=== PATIENT | female | born 1990 | race American Indian/Alaskan Native ===

== ENCOUNTER 2021-01-16 09:58 | Emergency (ER) | payer MEDICAID, OTHER ==
[2021-01-16 10:20] VITALS: BP 136/70
[2021-01-16] MEDS ORDERED: ACETAMINOPHEN 325 MG TAB PO ONE (10:55)
[2021-01-16 11:46] LABS: Alanine Aminotransferase 10 units/L (7-56); Albumin 3.9 g/dL (3.9-5); Blood Urea Nitrogen 6 mg/dL (7-17); Hemolysis Index 2
[2021-01-16 11:52] LABS: Basophils % (Auto) 0.1 % (0.0-1.8); Eosinophils # (Auto) 0.1 K/mm3 (0.0-0.4); Eosinophils % (Auto) 0.9 % (0.0-4.3); Hematocrit 36.5 % (30.3-42.9); Hemoglobin 12.2 gm/dl (10.1-14.3); Lymphocytes # (Auto) 2.5 K/mm3 (1.2-5.4); Lymphocytes % (Auto) 26.5 % (13.4-35.0); Mean Corpuscular HGB Conc 33 % (30-34); Mean Corpuscular Volume 87 fl (79-97); Monocytes # (Auto) 0.9 K/mm3 (0.0-0.8); Monocytes % (Auto) 9.2 % (0.0-7.3); Platelet Count 280 K/mm3 (140-440); Red Blood Count 4.18 M/mm3 (3.65-5.03); Red Cell Distribution Width 13.2 % (13.2-15.2)
[2021-01-16 11:53] LABS: BUN/Creatinine Ratio 12
[2021-01-16 12:21] LABS: Bilirubin,Urine NEG (Negative); Blood,Urine NEG (Negative); Color,Urine Yellow (Yellow); Mucus,Urine FEW /HPF; Protein,Urine <15 mg/dL mg/dL (Negative); Urobilinogen,Urine < 2.0 mg/dL (<2.0)
--- NOTE | 2021-01-16 12:57 | Emergency Department Report ---
ED HPI - General Chief complaint: Vaginal Bleeding Stated complaint: 10 WEEKS , VAGINAL BLEEDING Time Seen by Provider: 01/16/21 10:46 Source: patient Mode of arrival: Ambulatory Limitations: No Limitations - History of Present Illness Initial comments: Patient is a 30-year-old female presents emergency room complaints of lower abdominal cramping that began around 5 AM this morning. She states that she initially had light spotting. She states that she had one episode where she filled up her menstrual pad. She states now that the bleeding has completely resolved and when she went to the bathroom she had no bleeding. She states that she continues to have intermittent cramping. Patient states that she is currently approximately 10 weeks . She states that her GATE WATCHMAN is Dr. Newell and she called their office today and was advised to be seen in the emergency room. 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 She has not had any live births. She states that they were planning to do a cerclage at 13 weeks. She states that she has essentially been on bedrest since 6 weeks and she does not stay on her feet for more than 2 hours. She denies any fever, nausea, vomiting, diarrhea, abnormal vaginal discharge, urinary symptoms, back pain. No other past medical history. No allergies to medications. - Related Data Previous Rx's Medication Instructions Recorded Last Taken Type Ibuprofen [Motrin] 800 mg PO TID PRN #12 tablet 09/07/13 Unknown Rx Allergies Allergy/AdvReac Type Severity Reaction Status Date / Time peanut AdvReac Swelling Verified 09/07/13 12:16 strawberry [Hooper] AdvReac Swelling Verified 09/07/13 12:16 ED Review of Systems ROS: Stated complaint: 10 WEEKS , VAGINAL BLEEDING Other details as noted in HPI Comment: All other systems reviewed and negative ED Past Medical Hx - Past Medical History Previous Medical History?: No - Surgical History Past Surgical History?: No - Social History Smoking Status: Never Smoker Substance Use Type: None - Medications Home Medications: Home Medications Medication Instructions Recorded Confirmed Last Taken Type Ibuprofen [Motrin] 800 mg PO TID PRN #12 tablet 09/07/13 Unknown Rx ED Physical Exam - General Limitations: No Limitations General appearance: alert, in no apparent distress - Head Head exam: Present: atraumatic, normocephalic - Eye Eye exam: Present: normal appearance - ENT ENT exam: Present: mucous membranes moist - Respiratory Respiratory exam: Present: normal lung sounds bilaterally. Absent: respiratory distress, wheezes, rales, rhonchi, stridor, chest wall tenderness, accessory muscle use, decreased breath sounds, prolonged expiratory - Cardiovascular Cardiovascular Exam: Present: regular rate, normal rhythm, normal heart sounds. Absent: systolic murmur, diastolic murmur, rubs, gallop - GI/Abdominal GI/Abdominal exam: Present: soft, tenderness (suprapubic ), normal bowel sounds. Absent: distended, guarding, rebound, rigid - Neurological Exam Neurological exam: Present: alert, oriented X3 - Psychiatric Psychiatric exam: Present: normal affect, normal mood - Skin Skin exam: Present: warm, dry, intact ED Course Vital Signs 01/16/21 01/16/21 10:18 10:34 Temperature 98.7 F Pulse Rate 97 H Respiratory 18 18 Rate Blood Pressure 136/70 [Right] O2 Sat by Pulse 99 Oximetry - Consultations Consultation #1: 01/16/21 13:[address] Huggins, GATE WATCHMAN regarding patient history, presentation, results, she advised to have ultrasound to measure the cervix length Spoke with ultrasound and they state that the cervix length was 3.1 cm and the os was closed, an addendum was placed on patient's ultrasound report by radiologist Dr. Huggins, GATE WATCHMAN put in a note on patient and advised discharge with outpatient follow-up this week and complete pelvic rest ED Medical Decision Making - Lab Data Result diagrams: 01/16/21 11:01 01/16/21 11:01 Lab Results 01/16/21 01/16/21 01/16/21 Range/Units 11:01 11:01 11:01 WBC 9.4 (4.5-11.0) K/mm3 RBC 4.18 (3.65-5.03) M/mm3 Hgb 12.2 (10.1-14.3) gm/dl Hct 36.5 (30.3-42.9) % MCV 87 (79-97) fl MCH 29 (28-32) pg MCHC 33 (30-34) % RDW 13.2 (13.2-15.2) % Plt Count 280 (140-440) K/mm3 Lymph % (Auto) 26.5 (13.4-35.0) % [place] % (Auto) 9.2 H (0.0-7.3) % Eos % (Auto) 0.9 (0.0-4.3) % Baso % (Auto) 0.1 (0.0-1.8) % Lymph # (Auto) 2.5 (1.2-5.4) K/mm3 [place] # (Auto) 0.9 H (0.0-0.8) K/mm3 Eos # (Auto) 0.1 (0.0-0.4) K/mm3 Baso # (Auto) 0.0 (0.0-0.1) K/mm3 Seg Neutrophils % 63.3 (40.0-70.0) % Seg Neutrophils # 5.9 (1.8-7.7) K/mm3 Sodium 135 L (137-145) mmol/L Potassium 3.8 (3.6-5.0) mmol/L Chloride 101.1 (98-107) mmol/L Carbon Dioxide 24 (22-30) mmol/L Anion Gap 14 mmol/L BUN 6 L (7-17) mg/dL Creatinine 0.5 L (0.6-1.2) mg/dL Estimated GFR > 60 ml/min BUN/Creatinine Ratio 12 % Glucose 85 (65-100) mg/dL Calcium 9.0 (8.4-10.2) mg/dL Total Bilirubin < 0.20 (0.1-1.2) mg/dL AST 13 (5-40) units/L ALT 10 (7-56) units/L Alkaline Phosphatase 79 (35-129) units/L Total Protein 7.5 (6.3-8.2) g/dL Albumin 3.9 (3.9-5) g/dL Albumin/Globulin Ratio 1.1 % HCG, Quant 52836 H (0-4) mIU/mL Urine Color (Yellow) Urine Turbidity (Clear) Urine pH (5.0-7.0) Ur Specific [place] (1.003-1.030) Urine Protein (Negative) mg/dL Urine Glucose (UA) (Negative) mg/dL Urine Ketones (Negative) mg/dL Urine Blood (Negative) Urine Nitrite (Negative) Urine Bilirubin (Negative) Urine Urobilinogen (<2.0) mg/dL Ur Leukocyte Esterase (Negative) Urine WBC (Auto) (0.0-6.0) /HPF Urine RBC (Auto) (0.0-6.0) /HPF U Epithel Cells (Auto) (0-13.0) /HPF Urine Mucus /HPF Blood Type 01/16/21 01/16/21 Range/Units 11:01 Unknown WBC (4.5-11.0) K/mm3 RBC (3.65-5.03) M/mm3 Hgb (10.1-14.3) gm/dl Hct (30.3-42.9) % MCV (79-97) fl MCH (28-32) pg MCHC (30-34) % RDW (13.2-15.2) % Plt Count (140-440) K/mm3 Lymph % (Auto) (13.4-35.0) % [place] % (Auto) (0.0-7.3) % Eos % (Auto) (0.0-4.3) % Baso % (Auto) (0.0-1.8) % Lymph # (Auto) (1.2-5.4) K/mm3 [place] # (Auto) (0.0-0.8) K/mm3 Eos # (Auto) (0.0-0.4) K/mm3 Baso # (Auto) (0.0-0.1) K/mm3 Seg Neutrophils % (40.0-70.0) % Seg Neutrophils # (1.8-7.7) K/mm3 Sodium (137-145) mmol/L Potassium (3.6-5.0) mmol/L Chloride (98-107) mmol/L Carbon Dioxide (22-30) mmol/L Anion Gap mmol/L BUN (7-17) mg/dL Creatinine (0.6-1.2) mg/dL Estimated GFR ml/min BUN/Creatinine Ratio % Glucose (65-100) mg/dL Calcium (8.4-10.2) mg/dL Total Bilirubin (0.1-1.2) mg/dL AST (5-40) units/L ALT (7-56) units/L Alkaline Phosphatase (35-129) units/L Total Protein (6.3-8.2) g/dL Albumin (3.9-5) g/dL Albumin/Globulin Ratio % HCG, Quant (0-4) mIU/mL Urine Color Yellow (Yellow) Urine Turbidity Clear (Clear) Urine pH 7.0 (5.0-7.0) Ur Specific [place] 1.011 (1.003-1.030) Urine Protein <15 mg/dl (Negative) mg/dL Urine Glucose (UA) Neg (Negative) mg/dL Urine Ketones Neg (Negative) mg/dL Urine Blood Neg (Negative) Urine Nitrite Neg (Negative) Urine Bilirubin Neg (Negative) Urine Urobilinogen < 2.0 (<2.0) mg/dL Ur Leukocyte Esterase Tr (Negative) Urine WBC (Auto) 1.0 (0.0-6.0) /HPF Urine RBC (Auto) 1.0 (0.0-6.0) /HPF U Epithel Cells (Auto) 1.0 (0-13.0) /HPF Urine Mucus Few /HPF Blood Type A POSITIVE - Radiology Data Radiology results: report reviewed Ordering Physician: HAIM ERAZO Date of Service: 01/16/21 Procedure(s): US OB transvaginal Accession Number(s): [id number] cc: HAIM ERAZO ADDENDUM The cervix is closed and measures 3.1 cm. Signer Name: Noah Harrell DO Signed: 01/16/2021 1:31 PM Workstation Name: [id number] Addendum Transcribed By: ARJUN Addendum Dictated By: NOAH HARRELL DO Addendum Electronically Authenticated By: NOAH HARRELL DO Addendum Signed Date/Time: 01/16/211330 DD/ TD/TT: / ULTRASOUND OBSTETRIC INDICATION / CLINICAL INFORMATION: , cramping/bleeding. Clinical Gestational Age (GA) in weeks, days: 10 weeks, 2 days TECHNIQUE: Transabdominal and Transvaginal. COMPARISON: None available. FINDINGS: GESTATIONAL SAC: Well-defined oval shape and intrauterine in location. There is a small subchorionic hemorrhage. YOLK SAC: No significant abnormality. EMBRYO/FETUS: No significant abnormality. - [place]-Rump Length = 3.5 cm = 10 weeks, 2 days - Heart Rate, beats per minute (if present) = 171 ADNEXA: No significant abnormality. FREE FLUID: None. ADDITIONAL FINDINGS: None. IMPRESSION: 1. Single, living intrauterine with estimated sonographic age of 10 weeks, 2 days. Small subchorionic hemorrhage. Signer Name: Noah Harrell DO Signed: 01/16/2021 12:54 PM Workstation Name: [id number] Transcribed By: ARJUN Dictated By: NOAH HARRELL DO Electronically Authenticated By: NOAH HARRELL DO Signed Date/Time: 01/16/21 1254 DD/ 1251 TD/TT: -- [Addendum Report Added by Noah Harrell MD at 2021-01-16 13:38:04] [facility] [address] [place] [address] Ultrasound Report Signed Patient: CHELSEA PRECIADO MR#: [id number] : 1990 Acct:[id number] Age/Sex: 30 / F ADM Date: 01/16/21 Loc: ED Attending Dr: Ordering Physician: HAIM ERAZO Date of Service: 01/16/21 Procedure(s): US OB transvaginal Accession Number(s): [id number] cc: HAIM ERAZO ULTRASOUND OBSTETRIC INDICATION / CLINICAL INFORMATION: , cramping/bleeding. Clinical Gestational Age (GA) in weeks, days: 10 weeks, 2 days TECHNIQUE: Transabdominal and Transvaginal. COMPARISON: None available. FINDINGS: GESTATIONAL SAC: Well-defined oval shape and intrauterine in location. There is a small subchorionic hemorrhage. YOLK SAC: No significant abnormality. EMBRYO/FETUS: No significant abnormality. - [place]-Rump Length = 3.5 cm = 10 weeks, 2 days - Heart Rate, beats per minute (if present) = 171 ADNEXA: No significant abnormality. FREE FLUID: None. ADDITIONAL FINDINGS: None. IMPRESSION: 1. Single, living intrauterine with estimated sonographic age of 10 weeks, 2 days. Small subchorionic hemorrhage. Signer Name: Noah Harrell DO Signed: 01/16/2021 12:54 PM Workstation Name: [id number] Transcribed By: ARJUN Dictated By: NOAH HARRELL DO Electronically Authenticated By: NOAH HARRELL DO Signed Date/Time: 01/16/211253 DD/ 50 TD/TT: Print - Medical Decision Making Patient is a 30-year-old female presents emergency room complaints of lower abdominal cramping that began around 5 AM this morning. She states that she initially had light spotting. She states that she had one episode where she filled up her menstrual pad. She states now that the bleeding has completely resolved and when she went to the bathroom she had no bleeding. She states that she continues to have intermittent cramping. Patient states that she is currently approximately 10 weeks . She states that her GATE WATCHMAN is Dr. Newell and she called their office today and was advised to be seen in the emergency room. 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 She has not had any live births. She states that they were planning to do a cerclage at 13 weeks. She states that she has essentially been on bedrest since 6 weeks and she does not stay on her feet for more than 2 hours. She denies any fever, nausea, vomiting, diarrhea, abnormal vaginal discharge, urinary symptoms, back pain. No other past medical history. No allergies to medications. Vitals are stable. On exam patient has some suprapubic abdominal tenderness outpatient, no guarding, no rebound, no rigidity, normal pulses, no peritoneal signs. She states that she does not have any bleeding currently. Labs are stable. H&H is normal. Patient is Rh+. UA without evidence of UTI or red blood cells. OB ultrasound: 1. Single, living intrauterine with estimated sonographic age of 10 weeks, 2 days. Small subchorionic hemorrhage. The cervix is closed and measures 3.[address] Huggins, GATE WATCHMAN regarding patient history, presentation, results, she advised to have ultrasound to measure the cervix length. Spoke with ultrasound and they state that the cervix length was 3.1 cm and the os was closed, an addendum was placed on patient's ultrasound report by radiologist. Dr. Huggins, GATE WATCHMAN put in a note on patient and advised discharge with outpatient follow-up this week and complete pelvic rest. discussed all results with pt and answered questions, discussed US findings and the importance of close conservation engineer follow up. advised pt May take Tylenol as needed for any cramping. Increase your fluid intake. Please practice complete pelvic rest, no sexual intercourse, no tampons, no douching. Follow-up in office with Dr. Newell this week. Return to emergency room for new or worse symptoms. Critical care attestation.: If time is entered above; I have spent that time in minutes in the direct care of this critically ill patient, excluding procedure time. ED Disposition Clinical Impression: Abdominal cramping, Vaginal bleeding Subchorionic hematoma in first trimester Qualifiers: Fetus number: single or unspecified fetus Qualified Code(s): O41.8X10 - Other specified disorders of amniotic fluid and membranes, first trimester, not applicable or unspecified Disposition: TO HOME OR SELFCARE Is pt being admited?: No Does the pt Need Aspirin: No Condition: Stable Instructions: Vaginal Bleeding During , First Trimester, [id number], Subchorionic Hematoma Additional Instructions: May take Tylenol as needed for any cramping. Increase your fluid intake. Please practice complete pelvic rest, no sexual intercourse, no tampons, no douching. Follow-up in office with Dr. Newell this week. Return to emergency room for new or worse symptoms. Referrals: JACKIE NEWELL MD [Staff Physician] - 2-3 Days Time of Disposition: 14:01 Print Language: HEBREW
--- NOTE | 2021-01-16 13:50 | Event Note ---
Date: 01/16/21 Consulted regarding pt. CL is normal and does not appear via exam to show cervical impetence. Will need to f/u in the office this week. ABSOLUTE PELVIC REST. NO TAMPONS, DOUCHING, OR SEX. NO TUB BATHS SHOWERS ONLY UNTIL SEE IN THE OFFICE THIS WEEK.
== END 2021-01-16 15:07 | disposition home or self-care (01) ==
LOC: ED 09:58
DX: O20.8 Other hemorrhage in early pregnancy (principal); O26.891 Other specified pregnancy related conditions, first trimester; R10.30 Lower abdominal pain, unspecified; Z79.1 Long term (current) use of non-steroidal anti-inflammatories (NSAID); Z3A.10 10 weeks gestation of pregnancy; Z91.010 Allergy to peanuts; Z91.018 Allergy to other foods
CPT/HCPCS: 36415; 76801; 76817; 80053; 81001; 84702; 85025; 86900; 86901

== ENCOUNTER 2021-01-30 10:14 | Emergency (ER) | payer OTHER ==
[2021-01-30 11:36] LABS: Basophils # (Auto) 0.1 K/mm3 (0.0-0.1); Basophils % (Auto) 1.3 % (0.0-1.8); Eosinophils # (Auto) 0.1 K/mm3 (0.0-0.4); Eosinophils % (Auto) 0.8 % (0.0-4.3); Hematocrit 34.2 % (30.3-42.9); Hemoglobin 11.5 gm/dl (10.1-14.3); Lymphocytes # (Auto) 2.2 K/mm3 (1.2-5.4); Mean Corpuscular HGB Conc 34 % (30-34); Mean Corpuscular Volume 87 fl (79-97); Monocytes # (Auto) 0.4 K/mm3 (0.0-0.8); Monocytes % (Auto) 4.2 % (0.0-7.3); Platelet Count 266 K/mm3 (140-440); Red Blood Count 3.95 M/mm3 (3.65-5.03); Red Cell Distribution Width 13.7 % (13.2-15.2)
[2021-01-30 12:01] LABS: Alanine Aminotransferase 15 units/L (7-56); Albumin 3.7 g/dL (3.9-5); Blood Urea Nitrogen 7 mg/dL (7-17); Calcium 9.5 mg/dL (8.4-10.2); Hemolysis Index 11
[2021-01-30 12:08] LABS: BUN/Creatinine Ratio 14
[2021-01-30 12:53] LABS: Bilirubin,Urine NEG (Negative); Blood,Urine LG (Negative); Color,Urine Yellow (Yellow); Mucus,Urine 1+ /HPF; Protein,Urine <15 mg/dL mg/dL (Negative); Urobilinogen,Urine < 2.0 mg/dL (<2.0)
--- NOTE | 2021-01-30 13:39 | Ultrasound Report ---
EARLY OBSTETRICAL ULTRASOUND INDICATION: , bleeding, hx of incompetent cervix COMPARISON: 01/16/2021 TECHNIQUE: Transabdominal FINDINGS: Intrauterine is again noted. Small subchorionic bleed is again seen measuring 15 mm similar to prior study. Estimated gestational age by crown-rump length is 12 weeks 5 days which co rresponds to previous dating by ultrasound. Cardiac activity was documented with heart beat of 139 bpm. Amniotic fluid volume appears appropriate. Cervical length on transabdominal study today stephen sures 2.4 cm which is less than the 3.1 cm measured previously but that was by endovaginal technique and may not be comparable. No obvious widening of the internal cervical os is seen. Placenta is anter ior and free of the internal cervical os. IMPRESSION: Intrauterine with appropriate growth. Small subchorionic bleed is not significa nt change. See comments regarding the cervix above. Signer Name: Kervin Moreno MD Signed: 01/30/2021 1:34 PM Workstation Name: [id number]
--- NOTE | 2021-01-30 14:31 | Emergency Department Report ---
ED HPI - General Chief complaint: Vaginal Bleeding Stated complaint: VAG BLEEDING/PREG 12WKS Time Seen by Provider: 01/30/21 14:27 Source: patient Mode of arrival: Ambulatory Limitations: No Limitations - History of Present Illness Initial comments: Patient is a 30-year-old female presents emergency room complaints of vaginal bleeding that began at 3:30 AM this morning. She states that last night around 10 PM she accidentally tripped over the steps and fell onto the hardwood floor. She states that she did hit her abdomen. She denies any abdominal pain but states that a few hours later she began having the bleeding. She states initial ly she was having heavy bright red blood and passing clots. She states that the bleeding has improved and she is only had to change 1 pad in 4 hours. She denies any fever, nausea, vomiting, diarrhea, urinary symptoms. No past medical history. No allergies to medications. She reports that she is approximately 12 weeks and her due date is August 12. Patient has a history of incompetent cervix and has had multiple losses and has 0 live births. - Related Data Previous Rx's Medication Instructions Recorded Last Taken Type Ibuprofen [Motrin] 800 mg PO TID PRN #12 tablet 09/07/13 Unknown Rx Allergies Allergy/AdvReac Type Severity Reaction Status Date / Time peanut AdvReac Swelling Verified 01/30/21 10:23 strawberry [[place]] AdvReac Swelling Verified 01/30/21 10:23 ED Review of Systems ROS: Stated complaint: VAG BLEEDING/PREG 12WKS Other details as noted in HPI Comment: All other systems reviewed and negative ED Past Medical Hx - Past Medical History Previous Medical History?: No - Surgical History Past Surgical History?: No - Social History Smoking Status: Never Smoker Substance Use Type: None - Medications Home Medications: Home Medications Medication Instructions Recorded Confirmed Last Taken Type Ibuprofen [Motrin] 800 mg PO TID PRN #12 tablet 09/07/13 Unknown Rx ED Physical Exam - General Limitations: No Limitations General appearance: alert, in no apparent distress - Head Head exam: Present: atraumatic, normocephalic - Eye Eye exam: Present: normal appearance - ENT ENT exam: Present: mucous membranes moist - Respiratory Respiratory exam: Present: normal lung sounds bilaterally. Absent: respiratory distress, wheezes, rales, rhonchi, stridor, chest wall tenderness, accessory muscle use, decreased breath sounds, prolonged expiratory - Cardiovascular Cardiovascular Exam: Present: regular rate, normal rhythm, normal heart sounds. Absent: systolic murmur, diastolic murmur, rubs, gallop - GI/Abdominal GI/Abdominal exam: Present: soft, normal bowel sounds. Absent: distended, tenderness, guarding, rebound, rigid - Neurological Exam Neurological exam: Present: alert, oriented X3 - Psychiatric Psychiatric exam: Present: normal affect, normal mood - Skin Skin exam: Present: warm, dry, intact ED Course Vital Signs 01/30/21 01/30/21 10:26 15:45 Temperature 99.1 F Pulse Rate 99 H 90 Respiratory 20 16 Rate Blood Pressure 152/64 Blood Pressure 148/72 [Left] O2 Sat by Pulse 97 98 Oximetry - Consultations Consultation #1: 01/30/21 15:08 Spoke to rebecca Simsife regarding patient presentation and results of cervical length on ultrasound, she advised to have patient follow-up tomorrow 01/31/2021 at 1:45 PM in office with Dr. Newell, and advised to give precautions ED Medical Decision Making - Lab Data Result diagrams: 01/30/21 10:52 01/30/21 10:52 Lab Results 01/30/21 01/30/21 01/30/21 Range/Units 10:52 10:52 10:52 WBC 10.3 (4.5-11.0) K/mm3 RBC 3.95 (3.65-5.03) M/mm3 Hgb 11.5 (10.1-14.3) gm/dl Hct 34.2 (30.3-42.9) % MCV 87 (79-97) fl MCH 29 (28-32) pg MCHC 34 (30-34) % RDW 13.7 (13.2-15.2) % Plt Count 266 (140-440) K/mm3 Lymph % (Auto) 21.0 (13.4-35.0) % [place] % (Auto) 4.2 (0.0-7.3) % Eos % (Auto) 0.8 (0.0-4.3) % Baso % (Auto) 1.3 (0.0-1.8) % Lymph # (Auto) 2.2 (1.2-5.4) K/mm3 [place] # (Auto) 0.4 (0.0-0.8) K/mm3 Eos # (Auto) 0.1 (0.0-0.4) K/mm3 Baso # (Auto) 0.1 (0.0-0.1) K/mm3 Seg Neutrophils % 72.7 H (40.0-70.0) % Seg Neutrophils # 7.5 (1.8-7.7) K/mm3 Sodium 135 L (137-145) mmol/L Potassium 3.4 L (3.6-5.0) mmol/L Chloride 98.6 (98-107) mmol/L Carbon Dioxide 23 (22-30) mmol/L Anion Gap 17 mmol/L BUN 7 (7-17) mg/dL Creatinine 0.5 L (0.6-1.2) mg/dL Estimated GFR > 60 ml/min BUN/Creatinine Ratio 14 % Glucose 112 H (65-100) mg/dL Calcium 9.5 (8.4-10.2) mg/dL Total Bilirubin 0.20 (0.1-1.2) mg/dL AST 19 (5-40) units/L ALT 15 (7-56) units/L Alkaline Phosphatase 79 (35-129) units/L Total Protein 7.0 (6.3-8.2) g/dL Albumin 3.7 L (3.9-5) g/dL Albumin/Globulin Ratio 1.1 % HCG, Quant 13797 H (0-4) mIU/mL Urine Color (Yellow) Urine Turbidity (Clear) Urine pH (5.0-7.0) Ur Specific [place] (1.003-1.030) Urine Protein (Negative) mg/dL Urine Glucose (UA) (Negative) mg/dL Urine Ketones (Negative) mg/dL Urine Blood (Negative) Urine Nitrite (Negative) Urine Bilirubin (Negative) Urine Urobilinogen (<2.0) mg/dL Ur Leukocyte Esterase (Negative) Urine WBC (Auto) (0.0-6.0) /HPF Urine RBC (Auto) (0.0-6.0) /HPF U Epithel Cells (Auto) (0-13.0) /HPF Urine Mucus /HPF // Range/Units Unknown WBC (4.5-11.0) K/mm3 RBC (3.65-5.03) M/mm3 Hgb (10.1-14.3) gm/dl Hct (30.3-42.9) % MCV (79-97) fl MCH (28-32) pg MCHC (30-34) % RDW (13.2-15.2) % Plt Count (140-440) K/mm3 Lymph % (Auto) (13.4-35.0) % [place] % (Auto) (0.0-7.3) % Eos % (Auto) (0.0-4.3) % Baso % (Auto) (0.0-1.8) % Lymph # (Auto) (1.2-5.4) K/mm3 [place] # (Auto) (0.0-0.8) K/mm3 Eos # (Auto) (0.0-0.4) K/mm3 Baso # (Auto) (0.0-0.1) K/mm3 Seg Neutrophils % (40.0-70.0) % Seg Neutrophils # (1.8-7.7) K/mm3 Sodium (137-145) mmol/L Potassium (3.6-5.0) mmol/L Chloride (98-107) mmol/L Carbon Dioxide (22-30) mmol/L Anion Gap mmol/L BUN (7-17) mg/dL Creatinine (0.6-1.2) mg/dL Estimated GFR ml/min BUN/Creatinine Ratio % Glucose (65-100) mg/dL Calcium (8.4-10.2) mg/dL Total Bilirubin (0.1-1.2) mg/dL AST (5-40) units/L ALT (7-56) units/L Alkaline Phosphatase (35-129) units/L Total Protein (6.3-8.2) g/dL Albumin (3.9-5) g/dL Albumin/Globulin Ratio % HCG, Quant (0-4) mIU/mL Urine Color Yellow (Yellow) Urine Turbidity Clear (Clear) Urine pH 5.0 (5.0-7.0) Ur Specific [place] 1.027 (1.003-1.030) Urine Protein <15 mg/dl (Negative) mg/dL Urine Glucose (UA) Neg (Negative) mg/dL Urine Ketones Neg (Negative) mg/dL Urine Blood Lg (Negative) Urine Nitrite Neg (Negative) Urine Bilirubin Neg (Negative) Urine Urobilinogen < 2.0 (<2.0) mg/dL Ur Leukocyte Esterase Tr (Negative) Urine WBC (Auto) 5.0 (0.0-6.0) /HPF Urine RBC (Auto) 3.0 (0.0-6.0) /HPF U Epithel Cells (Auto) 3.0 (0-13.0) /HPF Urine Mucus 1+ /HPF Vital Signs 01/30/21 01/30/21 10:26 15:45 Temperature 99.1 F Pulse Rate 99 H 90 Respiratory 20 16 Rate Blood Pressure 152/64 Blood Pressure 148/72 [Left] O2 Sat by Pulse 97 98 Oximetry - Radiology Data Radiology results: report reviewed Ordering Physician: HAIM ERAZO Date of Service: 01/30/21 Procedure(s): US OB <= 14 weeks fetus Accession Number(s): [id number] cc: HAIM ERAZO EARLY OBSTETRICAL ULTRASOUND INDICATION: , bleeding, hx of incompetent cervix COMPARISON: 01/16/2021 TECHNIQUE: Transabdominal FINDINGS: Intrauterine is again noted. Small subchorionic bleed is again seen measuring 15 mm similar to prior study. Estimated gestational age by crown-rump length is 12 weeks 5 days which corresponds to previous dating by ultrasound. Cardiac activity was documented with heart beat of 139 bpm. Amniotic fluid volume appears appropriate. Cervical length on transabdominal study today measures 2.4 cm which is less than the 3.1 cm measured previously but that was by endovaginal technique and may not be comparable. No obvious widening of the internal cervical os is seen. Placenta is anterior and free of the internal cervical os. IMPRESSION: Intrauterine with appropriate growth. Small subchorionic bleed is not significant change. See comments regarding the cervix above. Signer Name: Kervin Moreno MD Signed: 01/30/2021 1:34 PM Workstation Name: [id number] Transcribed By: GJ Dictated By: Kervin Moreno MD Electronically Authenticated By: Kervin Moreno MD Signed Date/Time: 01/30/21 1334 DD/ 1329 TD/TT: - Medical Decision Making Patient is a 30-year-old female presents emergency room complaints of vaginal bleeding that began at 3:30 AM this morning. She states that last night around 10 PM she accidentally tripped over the steps and fell onto the hardwood floor. She states that she did hit her abdomen. She denies any abdominal pain but states that a few hours later she began having the bleeding. She states initially she was having heavy bright red blood and passing clots. She states that the bleeding has improved and she is only had to change 1 pad in 4 hours. She denies any fever, nausea, vomiting, diarrhea, urinary symptoms. No past medical history. No allergies to medications. She reports that she is approximately 12 weeks and her due date is August 12. Patient has a history of incompetent cervix and has had multiple losses and has 0 live births. Vitals are stable. No abdominal tenderness on exam, no guarding, no rebound, rigidity, normal bowel sounds, no peritoneal signs. Labs are stable. pt is rh positive. UA without evidence of significant UTI. OB US: Intrauterine with appropriate growth. Small subchorionic bleed is not significant change. See comments regarding the cervix above. Spoke to Bethany senior business objects developer regarding patient presentation and results of cervical length on ultrasound, she advised to have patient follow-up tomorrow 01/31/2021 at 1:45 PM in office with Dr. Newell, and advised to give precautions. Discussed all results with patient and answer questions. Advised patient Please practice pelvic rest, do not insert anything into the vagina, no heavy lifting, please be careful while getting around. Follow-up with Dr. Solis office in [facility] tomorrow 01/31/2021 at 1:45 PM. Return to emergency room for new or worsening symptoms. Critical care attestation.: If time is entered above; I have spent that time in minutes in the direct care of this critically ill patient, excluding procedure time. ED Disposition Clinical Impression: Vaginal bleeding Subchorionic hematoma Qualifiers: Fetus number: single or unspecified fetus Trimester: second trimester Qualified Code(s): O41.8X20 - Other specified disorders of amniotic fluid and membranes, second trimester, not applicable or unspecified Disposition: DC-01 TO HOME OR SELFCARE Is pt being admited?: No Does the pt Need Aspirin: No Condition: Stable Instructions: Vaginal Bleeding During , Second Trimester, Subchorionic Hematoma Additional Instructions: Please practice pelvic rest, do not insert anything into the vagina, no heavy lifting, please be careful while getting around. Follow-up with Dr. Solis office in [facility] tomorrow 01/31/2021 at 1:45 PM. Return to emergency room for new or worsening symptoms. Referrals: JACKIE NEWELL MD [Staff Physician] - 24 Hours Time of Disposition: 15:09 Print Language: FILIPINO
[2021-01-30 15:46] VITALS: BP 148/72
== END 2021-01-30 15:50 | disposition home or self-care (01) ==
LOC: ED 10:14
DX: O46.91 Antepartum hemorrhage, unspecified, first trimester (principal); O41.8X10 Other specified disorders of amniotic fluid and membranes, first trimester, not applicable or unspecified; Z3A.12 12 weeks gestation of pregnancy; Z91.010 Allergy to peanuts; Z91.018 Allergy to other foods
CPT/HCPCS: 36415; 76801; 80053; 81001; 84702; 85025; 99283

== ENCOUNTER 2021-02-06 06:42 | Day surgery (SDC) | payer OTHER ==
--- NOTE | 2021-02-04 17:20 | History and Physical Report ---
History of Present Illness Date of examination: 02/04/21 History of present illness: Patient has been reassessed/reevaluated. H&P has been reviewed. No interval changes. This is a 30 years old female who presents with history consistent cervical incompetence. OB Intake Ic Designer Standard Cells: zara Father of baby: Valdemar BARILLAS contact #: [phone] Menstrual History Regularity: regular Menses every: 28 days Duration: 4 LMP: 11/04/2020 LMP reliability: definite LMP character: normal test type: urine test Date: 11/28/2020 BC at conception: none Planned ? yes EDC Calculations LMP: 08/11/2021 EDC Confirmation: 08/11/2021 Past History : 7 Term Births: 0 Premature Births: 0 Living Children: 0 Para: 0 Mult. Births: 0 Prev : 0 Prev. attempt? 0 Aborta: 6 Elect. Ab: 0 Spont. Ab: 5 Ectopics: 1 # 1 Delivery date: 05/11/2011 Delivery type: ectopic Delivery location: [facility] Comments: Treated with MTX # 2 Delivery date: 07/07/2012 Weeks Gestation: 6 Delivery type: SAB # 3 Delivery date: 11/01/2012 Weeks Gestation: 8 Delivery type: SAB Comments: No D&C done # 4 Delivery date: 07/06/2013 Weeks Gestation: 18 Delivery type: SAB Delivery location: [facility] Comments: incompetent cervix # 5 Delivery date: 04/2019 Weeks Gestation: 9 Delivery type: SAB Comments: twins/ D&C # 6 Delivery date: 08/2019 Delivery type: SAB Comments: No D&C done Past Medical History: Depression Incompetent cervix Past Surgical History: D&C: Family History Summary: Family History of Coronary Heart Disease Family History of Diabetes Family History of CVA or Stroke Family History of Hypertension Family History of Prostate Cancer No Family History of Breast Cancer No Family History of Colon Cancer No Family History of Ovarvian Cancer No Family History of DVT/PE on OCP 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 Infection History Hx of STD: chlamydia HIV Risk Eval: no Partner hx. of genital herpes: yes Genetic History Congenital Heart Defect: Mom: no Dad: no Jessica Disease: Mom: no Dad: no Thalassemia Mom: no Dad: no Neural Tube Defect Mom: no Dad: no Down's Syndrome Mom: no Dad: no Soham-Sachs Mom: no Dad: no Sickle Cell Disease/Trait Mom: no Dad: no Hemophilia Mom: no Dad: no Muscular Dystrophy Mom: no Dad: no Cystic Fibrosis Mom: no Dad: no Ryley Chorea Mom: no Dad: no Mental Retardation Mom: no Dad: no Fragile X Mom: no Dad: no Other Genetic/Chromosomal Disorder Mom: no Dad: no Child w/other defect Mom: no Dad: no Comments/Counseling: Fob son autism Enviromental Exposures Xray Exposure: no Medication, drug, or alcohol use since LMP: no Chemical/Other Exposure: no Exposure to Cat Liter: yes Current Allergies (reviewed today): No known allergies Past History Past Medical History: other (SEE HPI FOR DETAILS) Past Surgical History: other (SEE HPI FOR DETAILS) ANALYSIS DIRECTOR History: other (SEE HPI FOR DETAILS) Family/Genetic History: other (SEE HPI FOR DETAILS) Social history: full code, other (SEE HPI FOR DETAILS) - Obstetrical History Expected Date of Delivery: 08/11/21 Actual Gestation: 13 Week(s) 3 Day(s) : 7 Para: 0 Hx # Term Pregnancies: 0 Number of Pregnancies: 0 Spontaneous Abortions: 6 (1 was an ectopic) Induced : 0 Number of Living Children: 0 Medications and Allergies Allergies Allergy/AdvReac Type Severity Reaction Status Date / Time peanut AdvReac Swelling Verified 01/30/21 10:23 strawberry [[place]] AdvReac Swelling Verified 01/30/21 10:23 Home Medications Medication Instructions Recorded Confirmed Last Taken Type Pnv,Calcium 72/Iron/Folic Acid 1 tab PO QHS 02/06/21 02/06/21 02/05/21 History [M- Plus Tablet] Review of Systems Constitutional: other (SEE HPI FOR DETAILS) - Physical Exam Breasts: Positive: deferred Cardiovascular: Regular rate Lungs: Positive: Normal air movement Abdomen: Positive: normal appearance, soft Genitourinary (Female): Positive: normal external genitalia Cervix: Negative: lesion, discharge Uterus: Positive: enlarged Anus/Rectum: Positive: normal perianal skin, heme negative. Negative: rectal mass, hemorrhoids Results All other labs normal. Assessment and Plan - Patient Problems (1) Incompetence of cervix Current Visit: No Status: Acute Plan to address problem: Diagnosis explained to patient . Questions answered. Risk and benefits discussed. Questions answered Patient understands and desires to proceed with cercalge Discussed the risks of bleeding, infection, possible rupture of membrane, possible damage to bladder and bowel.Indications for and description of the procedure given. Questions answered. Patient agrees to proceed. (2) Prior poor obstetrical history in first trimester, antepartum Current Visit: No Status: Acute (3) 13 weeks gestation of Current Visit: No Status: Acute (4) Anxiety disorder Current Visit: No Status: Acute Qualifiers: Anxiety disorder type: generalized anxiety disorder Qualified Code(s): F41.1 - Generalized anxiety disorder
[~2021-02-06 06:42] MED LIST: FAMOTIDINE 20 MG/2 ML INJ IV ONE; LACTATED RINGERS 1,000 ML IV SCH; METOCLOPRAMIDE 10 MG/2 ML INJ IV ONE
[2021-02-06 07:41] LABS: Basophils % (Auto) 0.5 % (0.0-1.8); Eosinophils # (Auto) 0.1 K/mm3 (0.0-0.4); Eosinophils % (Auto) 0.8 % (0.0-4.3); Hematocrit 34.1 % (30.3-42.9); Hemoglobin 11.7 gm/dl (10.1-14.3); Lymphocytes # (Auto) 2.2 K/mm3 (1.2-5.4); Lymphocytes % (Auto) 21.4 % (13.4-35.0); Mean Corpuscular HGB Conc 34 % (30-34); Mean Corpuscular Volume 87 fl (79-97); Monocytes # (Auto) 0.9 K/mm3 (0.0-0.8); Monocytes % (Auto) 8.4 % (0.0-7.3); Platelet Count 257 K/mm3 (140-440); Red Blood Count 3.94 M/mm3 (3.65-5.03); Red Cell Distribution Width 13.6 % (13.2-15.2)
--- NOTE | 2021-02-06 09:26 | Operative Report ---
Operative Report Operative Report: Date of procedure: February 06, 2021 Pre-operative diagnosis: Incompetent cervix Post-operative diagnosis: Same Procedure name(s): [place] cervical cerclage Surgeon: John Newell MD Jetting Machine Operator: Katlin Stacy CST Anesthesia: Spinal EBL: 100 cc Complications: None Findings: Cervix approximately 3.5-4.0 centimeters in length Specimen(s): None Procedure: Patient was brought to the operating room where spinal anesthesia was induced without difficulty. Patient was then placed in candy cane hanging stirrups. Patient was prepped and draped in usual sterile manner. Bladder was emptied with a red rubber catheter. Weighted speculum was placed in her vagina. The custody assistant retracted the bladder anteriorly. Her cervical exam as noted above. Proximately half a centimeter from the bladder anteriorly starting at 1:00 the Eth[place]ond stitch of the cerclage was placed in pursestring fashion. With the knot tied at 1:00 under moderate pressure with several throws in the knot. Patient cervix was slightly friable with some bleeding from placement of the forceps with teeth. A second Ethibond stitch was placed slightly low on her cervix was placed in a similar purse strings stitch also the knot at 1:00. There was no evidence of rupture of amniotic sac. No evidence of adjacent organ injury was seen. The cervix was was inspected and found to be hemostatic with the bleeding stopped and at the forceps placement spot noted prior. All instruments were removed. Patient was informed of the number of sutures 1 and the location of the knot at 1:00. The patient tolerated procedure well and was accompanied to recovery room in good condition. Instrument count correct x2.
[2021-02-06] MEDS ORDERED: D5W/LACTATED RINGERS 1,000 ML IV SCH (10:00)
--- NOTE | 2021-02-06 10:11 | Anesthesia Day of Surgery ---
Anesthesia Day of Surgery - Day of Surgery Patient Examined: Yes Patient H&P Reviewed: Yes Patient is NPO: Yes Beta Blockers: No Louie's Test: Negative
--- NOTE | 2021-02-06 10:12 | Anesthesia Consultation ---
Anesthesia Consult and Med Hx Date of service: 02/06/21 - Airway Anesthetic Teeth Evaluation: Good ROM Head & Neck: Adequate Mental/Hyoid Distance: Adequate Mallampati Class: Class II Intubation Access Assessment: Good - Pulmonary Exam CTA: Yes - Cardiac Exam Cardiac Exam: RRR - Pre-Operative Health Status ASA Pre-Surgery Classification: ASA2 Proposed Anesthetic Plan: Spinal - Pulmonary Hx Smoking: No Hx Asthma: No SOB: No COPD: No Home Oxygen Therapy: No Hx Pneumonia: No Hx Sleep Apnea: No - Cardiovascular System Hx Hypertension: No Hx Coronary Artery Disease: No Hx Heart Attack/AMI: No Hx Angina: No Hx Percutaneous Transluminal Coronary Angioplasty (PTCA): No Hx Cardia Arrhythmia: No Hx Pacemaker: No Hx Internal Defibrillator: No Hx Valvular Heart Disease: No Hx Heart Murmur: No Hx Peripheral Vascular Disease: No - Central Nervous System Hx Neuromuscular Disorder: No Hx Seizures: No CVA: No Hx Back Pain: Yes Hx Psychiatric Problems: No - Gastrointestinal Hx Ulcer: No Hx Gastroesophageal Reflux Disease: Yes - Endocrine Hx Renal Disease: No Hx End Stage Renal Disease: No Hx Cirrhosis: No Hx Liver Disease: No Hx Insulin Dependent Diabetes: No Hx Non-Insulin Dependent Diabetes: No Hx Thyroid Disease: No Hx Hypothyroidism: No Hx Hyperthyroidism: No - Hematic Hx Anemia: No Hx Sickle Cell Disease: No - Other Systems Hx Alcohol Use: No Hx Substance Use: No Hx Cancer: No Hx Obesity: Yes
--- NOTE | 2021-02-06 10:13 | Post Anesthesia Evaluation ---
- Post Anesthesia Evaluation Patient Participated: Yes Airway Patent: Yes Stable Respiratory Function: Yes Nausea/Vomiting: No Temp > 96.8F: Yes Pain Manageable: Yes Adequeate Hydration: Yes Anesthesia Complications: No Block Receding Appropriately: Yes Patient on Ventilator: No
--- NOTE | 2021-02-06 10:13 | Progress Note ---
Spinal Anesthesia Block - Spinal Anesthesia Block Start Time: 08:12 Stop Time: 08:14 Performed by:: MARTIN QUIGLEY Procedure: Patient IDed, H&P reviewed, all questions and concerns were answered, and consent was signed. Timeout was performed at bedside. Patient in sitting position. Sterile prep and drape was performed. [3] ml of 1% lidocaine skin wheal at L[3]- L [4]. Needle introducer advanced. 25 gauge spinal needle advanced. Clear, free flowing CSF. negative blood, negative paresthesia. Spinal dose given. All needles removed. Patient tolerated procedure.
[2021-02-06] MEDS ORDERED: ACETAMINOPHEN 325 MG TAB PO PRN (10:30)
[2021-02-06] MEDS ORDERED: DOCUSATE SODIUM 100 MG CAP PO SCH (11:00)
[2021-02-06 14:40] VITALS: BP 118/56
--- NOTE | 2021-02-06 15:19 | Short Stay Summary ---
Short Stay Documentation Date of service: 02/06/21 - History Social history: full code, other (SEE HPI FOR DETAILS) - Allergies and Medications Current Medications: Allergies peanut Adverse Reaction (Verified 01/30/21 10:23) Swelling strawberry [[place]] Adverse Reaction (Verified 01/30/21 10:23) Swelling Home Medications Medication Instructions Recorded Confirmed Last Taken Type Pnv,Calcium 72/Iron/Folic Acid 1 tab PO QHS 02/06/21 02/06/21 02/05/21 History [M- Plus Tablet] - Physical exam Breasts: deferred - Brief post op/procedure progress note Date of procedure: 02/06/21 (See dictated operative note for details) - Hospital course Hospital course: Patient was admitted underwent the above him procedure without any complications. Patient will be discharged with follow-up in office in 1-2 weeks for postop check. - Disposition Condition at discharge: Good Disposition: DC-01 TO HOME OR SELFCARE - Discharge Diagnoses (1) Incompetence of cervix Status: Acute (2) Prior poor obstetrical history in first trimester, antepartum Status: Acute (3) 13 weeks gestation of Status: Acute (4) Anxiety disorder Status: Acute Qualifiers: Anxiety disorder type: generalized anxiety disorder Qualified Code(s): F41.1 - Generalized anxiety disorder Short Stay Discharge Plan Activity: advance as tolerated, other (No intercourse) Diet: regular Additional Instructions: Please keep all upcoming appointments with your OBGYN. No driving and limit stair climbing for today post procedure. Limit streneous activity/lifting. No sexual activity or nothing in the vagina until approved by MD. Follow up with: JOHN PARK NP [Primary Care Provider] - 7 Days Forms: [facility] Discharge Summary
== END 2021-02-06 14:40 | disposition home or self-care (01) ==
LOC: LDOR 06:42 → APU 06:43 → LD 10:43 → LDOR 14:40
PROVIDERS: ATTEND Obstetrics & Gynecology
DX: N88.3 Incompetence of cervix uteri (principal); F41.1 Generalized anxiety disorder; E66.9 Obesity, unspecified; K21.9 Gastro-esophageal reflux disease without esophagitis; Z82.49 Family history of ischemic heart disease and other diseases of the circulatory system; Z88.8 Allergy status to other drugs, medicaments and biological substances; Z79.899 Other long term (current) drug therapy; Z3A.13 13 weeks gestation of pregnancy
CPT/HCPCS: 36415; 59320; 85025; 86850; 86900; 86901; J7120

== ENCOUNTER 2021-04-19 17:05 | Outpatient (CLI) | payer OTHER ==
[2021-04-19 17:22] VITALS: BP 136/65
[2021-04-19] MEDS ORDERED: LACTATED RINGERS 500 ML IV ONE (17:30)
[2021-04-19] MEDS ORDERED: ACETAMINOPHEN 500 MG TAB PO ONE (17:36)
[2021-04-19] MEDS ORDERED: LACTATED RINGERS 1,000 ML IV SCH (18:15)
[2021-04-19 18:24] LABS: Bacteria,Urine 1+ /HPF (Negative); Bilirubin,Urine NEG (Negative); Blood,Urine MOD (Negative); Color,Urine Straw (Yellow); Mucus,Urine FEW /HPF; Protein,Urine <15 mg/dL mg/dL (Negative); Urobilinogen,Urine < 2.0 mg/dL (<2.0)
[2021-04-19 18:56] LABS: Basophils % (Auto) 0.2 % (0.0-1.8); Eosinophils # (Auto) 0.1 K/mm3 (0.0-0.4); Eosinophils % (Auto) 0.8 % (0.0-4.3); Hematocrit 36.7 % (30.3-42.9); Hemoglobin 12.2 gm/dl (10.1-14.3); Lymphocytes # (Auto) 2.8 K/mm3 (1.2-5.4); Lymphocytes % (Auto) 29.9 % (13.4-35.0); Mean Corpuscular HGB Conc 33 % (30-34); Mean Corpuscular Volume 87 fl (79-97); Monocytes # (Auto) 1.1 K/mm3 (0.0-0.8); Monocytes % (Auto) 11.6 % (0.0-7.3); Platelet Count 241 K/mm3 (140-440)
--- NOTE | 2021-04-19 19:19 | Event Note ---
Date: 04/19/21 (Decreased movement lower abdominal pain) Pt is a @ 23.5 wks. She presented to triage with c/o lower abdominal pain, leakage of a small amount of clear fluid, and spotting. FFN and ROM test ordered and sent. Ultrasound ordered. Awaiting for those results. Attempted a gentle speculum exam but was unable to put in speculum d/t patient's discomfort. Was able to visualize some of the vaginal wall. Irritation, redness, and yeast like discharge noted on vaginal wall. No pooling of fluid or vaginal bleeding noted. Consulted with Dr. Mitchell. Will given fluids and Tylenol for pain. Also treat yeast infection accordingly.
--- NOTE | 2021-04-19 20:49 | Event Note ---
Date: 04/19/21 (Pt feeling better) Pt feeling better. We discussed being on bed rest at home at this time until her appointment on Thursday (04/19/2021) in the office. We also discussed the results of the u/s, FFN, and ROM test. FFN and ROM test negative. Ultrasound essentially unchanged from the office and her M appointments. Pt given prescription for treatment of yeast infection and UTI. Urine sent for culture. Will follow up with results. We discussed she should come back to triage and call national account manager provider if the following occur: leakage of fluid, vaginal bleeding, increase in vaginal pressure, or contraction like pain. We discussed normal movement at this gestational age and when to call with other questions and concerns. Pt discharged from triage in good condition.
--- NOTE | 2021-04-19 21:12 | Ultrasound Report ---
ULTRASOUND OBSTETRIC LIMITED INDICATION / CLINICAL INFORMATION: labor. COMPARISON: OB ultrasound from 01/30/2021. FINDINGS: AMNIOTIC FLUID INDEX (cm) = 11.7 PRESENTATION: Breech. HEART RATE (beats per minute): 149 ADDITIONAL FINDINGS: Cervical length measures 2.7 cm. IMPRESSION: Single live intrauterine as detailed above. Signer Name: Kenan Zambrano MD Signed: 04/19/2021 9:08 PM Workstation Name: [id number]
== END 2021-04-19 21:21 | disposition home or self-care (01) ==
LOC: TRG 17:05 → APU 17:07 → TRG 21:21
PROVIDERS: ATTEND Student in an Organized Health Care Education/Training Program
DX: Z34.92 Encounter for supervision of normal pregnancy, unspecified, second trimester (principal); Z3A.23 23 weeks gestation of pregnancy
CPT/HCPCS: 36415; 76815; 81001; 82731; 84112; 85025; 86850; 86900; 86901; 87086

== ENCOUNTER 2021-06-11 12:49 | Outpatient (CLI) | payer OTHER ==
[2021-06-11] MEDS ORDERED: LACTATED RINGERS 500 ML IV ONE (13:33)
[2021-06-11 13:46] VITALS: BP 123/66
[2021-06-11] MEDS ORDERED: LACTATED RINGERS 1,000 ML IV ONE (14:09)
[2021-06-11 14:52] LABS: Bilirubin,Urine NEG (Negative); Blood,Urine NEG (Negative); Color,Urine Yellow (Yellow); Mucus,Urine 1+ /HPF; Protein,Urine <15 mg/dL mg/dL (Negative); Urobilinogen,Urine < 2.0 mg/dL (<2.0)
[2021-06-11] MEDS ORDERED: ACETAMINOPHEN 500 MG TAB PO ONE (16:13)
--- NOTE | 2021-06-12 06:46 | Ultrasound Report ---
ULTRASOUND OBSTETRIC LIMITED INDICATION / CLINICAL INFORMATION: cervical length. Clinical Gestational Age (GA) in weeks, days: 31 weeks 2 days TECHNIQUE: Transabdominal. COMPARISON: 04/19/2021 FINDINGS: HEART RATE (beats per minute): 137 AMNIOTIC FLUID INDEX (cm) = 9.3 (normal = 7-24 cm) PRESENTATION: Cephalic. ADDITIONAL FINDINGS: Cervix measures 2.3 cm (previously measured 2.7 cm). The cervical os appears josé miguel sed. No significant funneling. IMPRESSION: Single live intrauterine , as described above. Signer Name: Ranjeet Ash MD Signed: 06/12/2021 6:42 AM Workstation Name: [id number]
== END 2021-06-11 16:41 | disposition home or self-care (01) ==
LOC: TRG 12:49 → APU 12:50 → TRG 16:41
PROVIDERS: ATTEND Obstetrics & Gynecology
DX: Z34.93 Encounter for supervision of normal pregnancy, unspecified, third trimester (principal); Z3A.31 31 weeks gestation of pregnancy
CPT/HCPCS: 59025; 76815; 76817; 81001

== ENCOUNTER 2021-07-21 09:50 | Outpatient (CLI) | payer OTHER ==
[2021-07-21 12:08] VITALS: BP 134/80
== END 2021-07-21 12:17 | disposition home or self-care (01) ==
LOC: TRG 09:50 → APU 09:51 → TRG 12:17
PROVIDERS: ATTEND Student in an Organized Health Care Education/Training Program
DX: O42.92 Full-term premature rupture of membranes, unspecified as to length of time between rupture and onset of labor (principal); Z3A.37 37 weeks gestation of pregnancy
CPT/HCPCS: 36415; 84112

== ENCOUNTER 2021-07-24 07:59 | Inpatient (IN) | payer OTHER ==
[2021-07-24] MEDS ORDERED: LACTATED RINGERS 1,000 ML ONE (08:00)
--- NOTE | 2021-07-24 08:14 | History and Physical Report ---
History of Present Illness Date of examination: 07/24/21 Date of admission: 07/24/2021 Chief complaint: Contractions History of present illness: Pt presented to triage with complaints of contractions. Her cervical exam upon triage admission was 9.5/100/+1. Unknown SROM. She has been followed by [facility] d/t multiple SABs, incompetent cervix and IUGR with current . She has a cerclage placed this that was removed at 36 weeks. Also of note, she was diagnosed with IUGR with an EFW of 8%, BPP 04/14 on 07/15/2021. EDC Confirmation: 08/11/2021 Gestational Age: 37.3 weeks on admission Past History : 7 Term Births: 0 Premature Births: 0 Living Children: 0 Para: 0 Mult. Births: 0 Prev : 0 Prev. attempt? 0 Aborta: 6 Elect. Ab: 0 Spont. Ab: 5 Ectopics: 1 # 1 Delivery date: 05/11/2011 Delivery type: ectopic Delivery location: [facility] Comments: Treated with MTX # 2 Delivery date: 07/07/2012 Weeks Gestation: 6 Delivery type: SAB # 3 Delivery date: 11/01/2012 Weeks Gestation: 8 Delivery type: SAB Comments: No D&C done # 4 Delivery date: 07/06/2013 Weeks Gestation: 18 Delivery type: SAB Delivery location: [facility] Comments: incompetent cervix # 5 Delivery date: 04/2019 Weeks Gestation: 9 Delivery type: SAB Comments: twins/ D&C # 6 Delivery date: 08/2019 Delivery type: SAB Comments: No D&C done Past Medical History: Reviewed history from 08/15/2019 and no changes required: Depression Incompetent cervix Past Surgical History: Reviewed history from 08/15/2019 and no changes required: D&C: Family History Summary: Reviewed history Last on 07/13/2019 and no changes required:12/27/2020 General Comments - FH: Family History of Coronary Heart Disease Family History of Diabetes Family History of CVA or Stroke Family History of Hypertension Family History of Prostate Cancer No Family History of Breast Cancer No Family History of Colon Cancer No Family History of Ovarvian Cancer No Family History of DVT/PE on OCP 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 Risk Factors: Smoked Tobacco Use: Never smoker Smokeless Tobacco Use: Never Passive smoke exposure: no Drug use: no HIV high-risk behavior: no Caffeine use: 0 drinks per day Alcohol use: no Exercise: no Seatbelt use: 100 % Dietary Counseling: pn yes Past Medical History Abnormal PAP: negative STACI Exposure: negative Infertility: negative Uterine Anomaly: negative Uterine Surgery (not C/S): negative Other Gynecologic Problems: negative Social Hx: manager voice Patient is engaged Smoking History: Patient has never smoked. Infection History Hx of STD: chlamydia HIV Risk Eval: no Partner hx. of genital herpes: yes Genetic History Congenital Heart Defect: Mom: no Dad: no Jessica Disease: Mom: no Dad: no Thalassemia Mom: no Dad: no Neural Tube Defect Mom: no Dad: no Down's Syndrome Mom: no Dad: no Soham-Sachs Mom: no Dad: no Sickle Cell Disease/Trait Mom: no Dad: no Hemophilia Mom: no Dad: no Muscular Dystrophy Mom: no Dad: no Cystic Fibrosis Mom: no Dad: no [place] Chorea Mom: no Dad: no Mental Retardation Mom: no Dad: no Fragile X Mom: no Dad: no Other Genetic/Chromosomal Disorder Mom: no Dad: no Child w/other defect Mom: no Dad: no Comments/Counseling: Fob son autism Enviromental Exposures Xray Exposure: no Medication, drug, or alcohol use since LMP: no Chemical/Other Exposure: no Exposure to Cat Liter: yes Current Allergies (reviewed today): No known allergies Past History Past Medical History: other (Depression) Past Surgical History: D&C Family/Genetic History: diabetes, heart disease, hypertension, cancer Social history: no significant social history - Obstetrical History Expected Date of Delivery: 08/11/21 Actual Gestation: 37 Week(s) 3 Day(s) : 7 Para: 0 Hx # Term Pregnancies: 0 Number of Pregnancies: 0 Spontaneous Abortions: 6 Induced : 0 Number of Living Children: 0 Medications and Allergies Allergies Allergy/AdvReac Type Severity Reaction Status Date / Time peanut AdvReac Swelling Verified 07/21/21 10:09 strawberry [[place]] AdvReac Swelling Verified 07/21/21 10:09 Home Medications Medication Instructions Recorded Confirmed Last Taken Type Pnv,Calcium 72/Iron/Folic Acid 1 tab PO QHS 02/06/21 02/06/21 02/05/21 History [M-Renetta Plus Tablet] Nitrofurantoin Frontier/M-Cryst 100 mg PO Q12HR #10 capsule 04/19/21 Unknown Rx [Macrobid CAP] Terconazole [Terazol 7 Vag Cream] 1 applicator VG QHS #7 cream.appl 04/19/21 Unknown Rx Review of Systems All systems: negative - Vital Signs Vital signs: Vital Signs Pulse Ox 83 L 07/24/21 08:00 Temp Pulse Resp BP Pulse Ox 112 H 157/82 100 07/24/21 08:10 07/24/21 08:03 07/24/21 08:10 - Physical Exam Cardiovascular: Regular rate Lungs: Positive: Normal air movement Abdomen: Positive: normal appearance, soft Genitourinary (Female): Positive: normal external genitalia, normal perenium Vulva: both: normal - Obstetrical FHR: category 1 Uterine Contraction Monitor Mode: External Cervical Dilatation: 9.5 (No bag felt) Cervical Effacement Percentage: 100 station: +1 Uterine Contraction Pattern: Regular Uterine Tone Measurement Phase: Resting Uterine Contraction Intensity: Moderate Results Result Diagrams: 07/24/21 14:05 07/24/21 14:05 All other labs normal. GBS POSITIVE HBsAg Screen Negative Negative *1 RPR Non Reactive Non Reactive *2 Rubella Antibodies, IgG 1.44 index Immune >0.99 *3 Non-immune <0.90 Equivocal 0.90 - 0.99 Immune >0.99 ABO Grouping A *4 Rh Factor Positive *5 Please note: Prior records for this patient's ABO / Rh type are not available for additional verification. Antibody Screen Negative Negative *6 Tests: (5) HIV Ag/Ab with Reflex ([id number]) HIV Screen 4th Generation wRfx Non Reactive Non Reactive *34 Tests: (6) Toxoplasma gondii Ab,IgM ([id number]) ! Toxoplasma gondii Ab,IgM 3.5 AU/mL 0.0-7.9 *35 Negative <8.0 Equivocal 8.0 - 9.9 Positive >9.9 Tests: (7) Comment: ([id number]) ! Comment: SPRCS *36 It is presumed the patient has not been infected with and is not undergoing an acute infection with Toxoplasma. If symptoms persist, submit a new specimen after three weeks. Tests: (8) HCV Antibody reflex to ROMERO ([id number]) ! HCV Ab <0.1 s/co ratio 0.0-0.9 *37 Tests: (9) Interpretation: ([id number]) ! Interpretation: SPRCS *38 Negative Not infected with HCV, unless recent infection is suspected or other evidence exists to indicate HCV infection. Assessment and Plan A: 30 y.o. @ 37.3 wks, in active labor. Cervical exam 9.5/100/+1. Hx of incompetent cervix. - Patient Problems (1) Active labor at term Current Visit: Yes Status: Acute Plan to address problem: Admit to labor and delivery. Initiate IV. Draw admission labs. IV fluid bolus for epidural placement. Anticipate . (2) 37 or more weeks gestation of Current Visit: Yes Status: Acute Plan to address problem: Monitor status through EFM. (3) Incompetence of cervix Current Visit: No Status: Acute (4) IUGR (intrauterine growth restriction) Current Visit: Yes Status: Acute Plan to address problem: Monitor status through EFM.
[2021-07-24] MEDS ORDERED: AMPICILLIN/NS 2 GM/100 ML 2 GM/100 ML BAG IV ONE (08:44)
[2021-07-24 08:56] LABS: Hematocrit 39.9 % (30.3-42.9); Hemoglobin 12.6 gm/dl (10.1-14.3); Mean Corpuscular HGB Conc 32 % (30-34); Mean Corpuscular Volume 87 fl (79-97); Platelet Count 188 K/mm3 (140-440); Red Cell Distribution Width 14.9 % (13.2-15.2)
[2021-07-24] MEDS ORDERED: fentaNYL 100 MCG/2 ML INJ IV PRN (09:00)
[2021-07-24] MEDS ORDERED: ACETAMINOPHEN 325 MG TAB PO PRN ×2 (09:00→18:07)
[2021-07-24] MEDS ORDERED: NALOXONE 0.4 MG/1 ML INJ IV PRN (09:00)
[2021-07-24] MEDS ORDERED: BUTORPHANOL 2 MG/1 ML INJ IV PRN (09:00)
[2021-07-24] MEDS ORDERED: LIDOCAINE (2%) 20 MG/1 ML VIAL 20 ML MDV INFILTRATI NR (09:00)
[2021-07-24] MEDS ORDERED: OXYTOCIN DRIP 30 UNITS/500 ML BAG IV SCH ×3 (09:00→18:07)
[2021-07-24] MEDS ORDERED: ePHEDrine SULFATE 50 MG/1 ML INJ IV PRN (09:00)
[2021-07-24] MEDS ORDERED: miSOPROStol 200 MCG TAB PR PRN (09:00)
[2021-07-24] MEDS ORDERED: TERBUTALINE 1 MG/1 ML INJ SUB-Q PRN (09:00)
[2021-07-24] MEDS ORDERED: PROMETHAZINE 25 MG TAB PO PRN ×2 (09:00→18:07)
[2021-07-24] MEDS ORDERED: METHYLERGONOVINE MALEATE 0.2 MG/ML VIAL IM PRN (09:00)
[2021-07-24] MEDS ORDERED: LACTATED RINGERS 1,000 ML IV SCH (09:00)
[2021-07-24] MEDS ORDERED: CARBOPROST TROMETHAMINE 250 MCG/1 ML INJ IM PRN (09:00)
[2021-07-24] MEDS ORDERED: LOPERAMIDE 2 MG CAP PO PRN (09:00)
[2021-07-24] MEDS ORDERED: ONDANSETRON 4 MG/2 ML INJ IV PRN ×2 (09:00→18:07)
[2021-07-24] MEDS ORDERED: OXYTOCIN 10 UNIT/1 ML INJ IM PRN (09:00)
--- NOTE | 2021-07-24 09:30 | Anesthesia Consultation ---
Anesthesia Consult and Med Hx Date of service: 07/24/21 - Airway Anesthetic Teeth Evaluation: Good ROM Head & Neck: Adequate Mental/Hyoid Distance: Adequate Mallampati Class: Class II Intubation Access Assessment: Probably Good - Pre-Operative Health Status ASA Pre-Surgery Classification: ASA2 Proposed Anesthetic Plan: Epidural, Spinal - Pulmonary Hx Smoking: No Hx Asthma: No SOB: No COPD: No Hx Pneumonia: No Hx Sleep Apnea: No - Cardiovascular System Hx Hypertension: No Hx Coronary Artery Disease: No Hx Heart Attack/AMI: No Hx Angina: No Hx Percutaneous Transluminal Coronary Angioplasty (PTCA): No Hx Cardia Arrhythmia: No Hx Pacemaker: No Hx Internal Defibrillator: No Hx Valvular Heart Disease: No Hx Heart Murmur: No Hx Peripheral Vascular Disease: No - Central Nervous System Hx Neuromuscular Disorder: No Hx Seizures: No CVA: No Hx Back Pain: Yes Hx Psychiatric Problems: No - Gastrointestinal Hx Ulcer: No Hx Gastroesophageal Reflux Disease: Yes - Endocrine Hx Renal Disease: No Hx End Stage Renal Disease: No Hx Cirrhosis: No Hx Liver Disease: No Hx Insulin Dependent Diabetes: No Hx Non-Insulin Dependent Diabetes: No Hx Thyroid Disease: No Hx Hypothyroidism: No Hx Hyperthyroidism: No - Hematic Hx Anemia: No Hx Sickle Cell Disease: No - Other Systems Hx Alcohol Use: No Hx Substance Use: No Hx Cancer: No Hx Obesity: Yes
--- NOTE | 2021-07-24 09:34 | Progress Note ---
Labor Epidural - Labor Epidural Start Time: 08:44 Stop Time: 08:59 Performed by:: RAND BAZAN Procedure: Combined spinal/epidural for labor Patient requesting epidural for labor pain. H&P, labs were reviewed. Patient IDed, procedure explained, all questions and concerns answered, and consent signed. Timeout performed immediately prior to procedure. Patient placed in sitting position. Sterile prep and drape in usual fashion. Skin anesthetized with 3ml of 1% lidocaine at L[2]- L [3] interspace. 17-gauge Touhy epidural needle advanced to LOLITA with saline @ 6cm. Negative CSF, negative blood via Touhy needle. 25g spinal needle advanced through Touhy until clear, free flowing CSF noted. 10 mg of Precedex injected into intrathecal space then spinal needle removed. Epidural catheter advanced to [11] centimeters. [Negative] aspiration and [negative] response to 1% lidocaine w/ epi test dose. Clear, sterile dressing applied and reinforced with tape. Patient tolerated procedure well, no immediate complications noted. Bolus epidural Lidocaine 1%-5cc is given after the procedure. Pain improved after procedure.
[2021-07-24] MEDS ORDERED: MAGNESIUM SULFATE 4 GM/100 ML BAG IV ONE (11:09)
--- NOTE | 2021-07-24 11:17 | Procedure Note ---
OB Delivery Note - Delivery Date of Delivery: 07/24/21 Sales Order Processor: MELLY PLATT (Ashli Boswell) Estimated blood loss: other (QBL 227) - Vaginal Delivery presentation: vertex Delivery position: OA Intrapartum events: none Delivery induction: none Delivery monitor: external FHT, external uterine Route of delivery: Delivery placenta: spontaneous Delivery cord: 3 umbilical vessels Episiotomy: none Delivery laceration: other (periurethral abrasions, hemostatic, not repaired.) Anesthesia: epidural Delivery comments: Pt endorsing constant rectal pressure immediately following epidural placement. SVE: c/c/+2. @0905 Pushing with contractions initiated with JD Platt, DREW Boswell and SB Catherine at bedside. Supportive family member at bedside continuously. 150mL clear yellow urine straight cath'ed @1000. Good maternal pushing effort with progression to SVB of vigorous female infant @1026. [place] placed skin to skin to maternal abdomen, 3vc clamped and cut @45 seconds of life. APGARS: 8/8, weight 2440g, 5-9. IV pitocin initiated, intact shiny elena placenta @1032. Bilateral periurethral abrasions hemostatic, not repaired. Gush of bright red bleeding noted following delivery of placenta, 800mcg cytotec administered UT. QBL: 227mL. Instruments sponges counted X2 with RN and correct X2. Infant and mother left in care of RN. Of note, multiple MRBP and 2 SRBP noted this admission. Pt denies symptoms of chest pain, SOB, RUQ and blurred vision at this time. STAT Pre eclampsia labs drawn, start magnesium. Dr. Huggins aware. Pt in agreement with plan of care. -Ashli Boswell & JD Platt - Infant A at 1 minute: 8 at 5 minutes: 8 Gender: Female (5-9)
[2021-07-24] MEDS ORDERED: MAGNESIUM SULFATE 40GM/1000ML 40 GM/1,000 ML BAG IV SCH (12:00)
[2021-07-24] MEDS ORDERED: AMPICILLIN/NS 1 GM/50 ML 1 GM/50 ML BAG IV SCH (13:00)
[2021-07-24 13:25] LABS: Bilirubin,Urine NEG (Negative); Blood,Urine MOD (Negative); Color,Urine Yellow (Yellow); Mucus,Urine FEW /HPF; Protein,Urine <15 mg/dL mg/dL (Negative); Urobilinogen,Urine < 2.0 mg/dL (<2.0)
[2021-07-24 14:28] LABS: Hematocrit 33.3 % (30.3-42.9); Hemoglobin 10.7 gm/dl (10.1-14.3); Mean Corpuscular HGB Conc 32 % (30-34); Mean Corpuscular Volume 87 fl (79-97); Platelet Count 183 K/mm3 (140-440); Red Blood Count 3.85 M/mm3 (3.65-5.03); Red Cell Distribution Width 14.5 % (13.2-15.2)
[2021-07-24 14:46] LABS: Alanine Aminotransferase 15 units/L (7-56); Uric Acid 5.5 mg/dL (3.5-7.6)
[2021-07-24] MEDS ORDERED: IBUPROFEN 800 MG TAB ONE (18:06)
[2021-07-24] MEDS ORDERED: BENZOCAINE/MENTHOL 20/0.5% TOP SPRAY 56 GM TP PRN (18:07)
[2021-07-24] MEDS ORDERED: oxyCODONE /ACETAMINOPHEN 5-325MG TAB PO PRN (18:07)
[2021-07-24] MEDS ORDERED: miSOPROStol 100 MCG TAB PR PRN (18:07)
[2021-07-24] MEDS ORDERED: diphenhydrAMINE 25 MG CAP PO PRN (18:07)
[2021-07-24] MEDS ORDERED: PROMETHAZINE 25 MG RECT SUPP PR PRN (18:07)
[2021-07-24] MEDS ORDERED: WITCH HAZEL/ GLYCERIN PAD TP PRN (18:07)
[2021-07-24] MEDS ORDERED: MAGNESIUM HYDROXIDE (MOM) ORAL LIQD UDC PO PRN (18:07)
[2021-07-24] MEDS ORDERED: LANOLIN/ZINC/DIMETHICONE (LANSINOH) 7 GM TP PRN ×2 (18:07)
[2021-07-24] MEDS: DOCUSATE SODIUM 100 MG CAP PO SCH (21:22)
[2021-07-24] MEDS ORDERED: MINERAL OIL 30 ML ORAL LIQD PO PRN (22:00)
[2021-07-24 23:11] LABS: Hematocrit 30.1 % (30.3-42.9); Hemoglobin 9.3 gm/dl (10.1-14.3)
[2021-07-25] MEDS ORDERED: TETANUS,DIPH,PERTUSS(ACELL) VACCINE 0.5 ML SYRINGE IM ONE (06:00)
[2021-07-25] MEDS ORDERED: LACTATED RINGERS 1,000 ML ONE (06:46)
[2021-07-25] MEDS: IBUPROFEN 800 MG TAB PO SCH ×3 (08:10→21:32)
--- NOTE | 2021-07-25 08:24 | Progress Note ---
Assessment and Plan patient resting w/o complaints, mag sulfate infusing @ 2gm/hr, urine output adequate. blood pressures trending down, will continue to monitor. - Patient Problems (1) (normal spontaneous vaginal delivery) Current Visit: Yes Status: Acute Plan to address problem: cont pathway (2) Pre-eclampsia Current Visit: Yes Status: Acute Plan to address problem: continue mag sulfate x 24hrs post delivery then transfer to [facility] Labetalol 200mg BID Close monitoring of blood pressure and urine output Subjective - Subjective Date of service: 07/25/21 Principal diagnosis: day #1 s/p ; pre-e on mag Patient reports: appetite normal, pain well controlled, no nauseated : doing well (holding in NICU) Objective - Vital Signs Latest vital signs: Vital Signs Temp Pulse Resp BP Pulse Ox Pulse Ox 07/25/21 08:11 98.6 F 98 07/25/21 07:58 98 H 126/58 07/25/21 06:58 97 H 111/54 07/25/21 06:28 103 H 119/65 07/25/21 05:58 101 H 132/69 07/25/21 05:28 102 H 126/72 07/25/21 04:58 99 H 158/78 07/25/21 03:58 94 H 137/72 07/25/21 03:28 96 H 120/61 07/25/21 02:58 93 H 121/61 07/25/21 02:28 100 H 111/58 07/25/21 01:58 96 H 106/57 07/25/21 01:28 97 H 118/63 07/25/21 00:58 96 H 141/90 07/25/21 00:28 98 H 133/65 07/24/21 23:58 96 H 131/68 07/24/21 23:28 95 H 132/61 07/24/21 22:58 102 H 114/55 07/24/21 22:28 102 H 120/57 07/24/21 21:58 100 H 137/90 07/24/21 21:28 114 H 153/89 07/24/21 21:22 135/60 07/24/21 20:58 109 H 135/60 07/24/21 20:39 115 H 127/71 07/24/21 19:58 108 H 139/67 07/24/21 19:28 109 H 141/65 07/24/21 19:27 98.6 F 07/24/21 18:58 111 H 135/69 07/24/21 18:28 115 H 140/65 07/24/21 17:58 118 H 114/65 07/24/21 17:48 98.8 F 07/24/21 17:40 112 H 98 07/24/21 17:35 114 H 98 07/24/21 17:30 113 H 98 07/24/21 17:28 112 H 171/76 90 07/24/21 17:25 113 H 99 07/24/21 17:20 110 H 99 07/24/21 17:15 119 H 99 07/24/21 17:10 122 H 98 07/24/21 17:05 118 H 98 07/24/21 17:00 122 H 99 07/24/21 16:58 120 H 129/68 07/24/21 16:55 114 H 98 07/24/21 16:50 120 H 98 07/24/21 16:45 119 H 97 07/24/21 16:40 112 H 98 07/24/21 16:35 117 H 99 07/24/21 16:30 117 H 98 07/24/21 16:28 110 H 135/71 07/24/21 16:25 113 H 99 07/24/21 16:20 115 H 98 07/24/21 16:15 119 H 99 07/24/21 16:10 121 H 99 07/24/21 16:05 122 H 99 07/24/21 16:00 122 H 98 07/24/21 15:58 121 H 114/79 07/24/21 15:55 119 H 98 07/24/21 15:50 119 H 98 07/24/21 15:48 98.7 F 18 99 07/24/21 15:45 116 H 98 07/24/21 15:40 116 H 98 07/24/21 15:35 118 H 99 07/24/21 15:30 119 H 99 07/24/21 15:25 119 H 98 07/24/21 15:20 115 H 98 07/24/21 15:19 117 H 151/70 07/24/21 15:15 118 H 99 07/24/21 15:10 116 H 98 07/24/21 15:05 119 H 99 07/24/21 15:04 116 H 143/85 07/24/21 15:00 120 H 99 07/24/21 14:55 121 H 99 07/24/21 14:50 121 H 99 07/24/21 14:49 116 H 161/91 07/24/21 14:45 115 H 98 07/24/21 14:40 119 H 99 07/24/21 14:35 119 H 99 07/24/21 14:34 116 H 140/76 07/24/21 14:30 115 H 98 07/24/21 14:25 121 H 99 07/24/21 14:20 120 H 98 07/24/21 14:19 120 H 128/75 07/24/21 14:15 116 H 99 07/24/21 14:10 122 H 99 07/24/21 14:05 120 H 98 07/24/21 14:04 117 H 130/74 07/24/21 14:00 119 H 99 07/24/21 13:55 123 H 98 07/24/21 13:50 120 H 98 07/24/21 13:49 126 H 139/87 07/24/21 13:45 124 H 99 07/24/21 13:40 122 H 100 07/24/21 13:35 125 H 99 07/24/21 13:34 121 H 127/77 92 07/24/21 13:30 123 H 100 07/24/21 13:25 127 H 100 07/24/21 13:20 125 H 99 07/24/21 13:19 129 H 140/70 07/24/21 13:15 129 H 100 07/24/21 13:10 128 H 98 07/24/21 13:05 130 H 97 07/24/21 13:04 130 H 150/64 07/24/21 13:03 99 F 20 99 07/24/21 13:00 133 H 98 07/24/21 12:55 130 H 98 07/24/21 12:50 129 H 100 07/24/21 12:49 134 H 144/68 07/24/21 12:45 139 H 99 07/24/21 12:40 132 H 98 07/24/21 12:35 121 H 99 07/24/21 12:34 122 H 140/73 07/24/21 12:30 125 H 99 07/24/21 12:25 127 H 98 07/24/21 12:20 123 H 99 07/24/21 12:19 116 H 149/68 07/24/21 12:15 119 H 99 07/24/21 12:10 119 H 98 07/24/21 12:05 122 H 99 07/24/21 12:04 120 H 143/64 07/24/21 12:00 125 H 98 07/24/21 11:59 118 H 155/80 07/24/21 11:55 126 H 99 07/24/21 11:50 127 H 98 07/24/21 11:49 123 H 156/82 07/24/21 11:45 124 H 99 07/24/21 11:40 125 H 99 07/24/21 11:35 133 H 99 07/24/21 11:34 131 H 156/80 07/24/21 11:30 131 H 99 07/24/21 11:25 133 H 98 07/24/21 11:20 124 H 99 07/24/21 11:19 125 H 166/71 07/24/21 11:15 125 H 99 07/24/21 11:10 124 H 99 07/24/21 11:05 124 H 99 07/24/21 11:04 125 H 176/77 07/24/21 11:00 133 H 100 07/24/21 10:55 135 H 100 07/24/21 10:50 134 H 100 07/24/21 10:49 131 H 158/92 07/24/21 10:45 135 H 100 07/24/21 10:40 139 H 99 07/24/21 10:35 139 H 100 07/24/21 10:32 130 H 168/76 07/24/21 10:30 133 H 99 07/24/21 10:27 125 H 166/70 07/24/21 10:25 133 H 99 07/24/21 10:20 129 H 99 07/24/21 10:18 133 H 231/101 94 07/24/21 10:15 127 H 100 07/24/21 10:12 131 H 154/70 07/24/21 10:10 131 H 100 07/24/21 10:07 127 H 147/93 07/24/21 10:05 135 H 100 07/24/21 10:02 110 H 147/60 07/24/21 10:00 117 H 100 07/24/21 09:55 120 H 100 07/24/21 09:50 121 H 100 07/24/21 09:47 127 H 143/72 07/24/21 09:45 119 H 100 07/24/21 09:42 108 H 133/63 07/24/21 09:40 126 H 99 07/24/21 09:37 110 H 132/57 07/24/21 09:35 122 H 100 07/24/21 09:30 117 H 100 07/24/21 09:28 115 H 123/60 07/24/21 09:25 111 H 100 07/24/21 09:22 120 H 162/111 07/24/21 09:20 121 H 100 07/24/21 09:15 127 H 100 07/24/21 09:13 114 H 125/58 07/24/21 09:10 119 H 100 07/24/21 09:05 120 H 100 07/24/21 09:02 111 H 163/73 07/24/21 09:00 109 H 99 07/24/21 08:58 114 H 171/91 07/24/21 08:55 122 H 100 07/24/21 08:52 115 H 167/79 07/24/21 08:50 119 H 100 07/24/21 08:48 115 H 196/91 07/24/21 08:45 112 H 99 07/24/21 08:42 114 H 167/95 07/24/21 08:40 119 H 99 07/24/21 08:35 111 H 100 07/24/21 08:30 109 H 100 07/24/21 08:25 105 H 100 Intake and Output 07/24/21 07/25/21 07/25/21 23:59 07:59 15:59 Output Total 3100 1700 Balance -3100 -1700 Output: Urine 3100 1700 Indwelling Catheter 3100 1700 Other: Total, Output Amount 500 900 - Exam Breasts: Present: normal Cardiovascular: Present: Regular rate Lungs: Present: Normal air movement Abdomen: Present: normal appearance, soft Uterus: Present: normal, firm, fundal height below umbilicus Extremities: Present: normal - Labs Labs: Abnormal lab results 07/24/21 07/24/21 07/24/21 Range/Units 08:30 14:05 14:05 WBC 13.2 H 19.2 H (4.5-11.0) K/mm3 Hgb (10.1-14.3) gm/dl Hct (30.3-42.9) % Magnesium 3.50 H (1.7-2.3) mg/dL Lactate Dehydrogenase (91-180) units/L 07/24/21 07/24/21 07/24/21 Range/Units 14:05 20:42 22:51 WBC (4.5-11.0) K/mm3 Hgb 9.3 L (10.1-14.3) gm/dl Hct 30.1 L (30.3-42.9) % Magnesium 4.60 H (1.7-2.3) mg/dL Lactate Dehydrogenase 263 H (91-180) units/L 07/25/21 07/25/21 Range/Units 00:47 05:42 WBC (4.5-11.0) K/mm3 Hgb (10.1-14.3) gm/dl Hct (30.3-42.9) % Magnesium 4.70 H 4.70 H (1.7-2.3) mg/dL Lactate Dehydrogenase (91-180) units/L
[2021-07-25] MEDS: DOCUSATE SODIUM 100 MG CAP PO SCH ×2 (09:51→21:29)
[2021-07-25] MEDS: PRENATAL VIT27-FE FUMARATE-FOLIC ACID VIT TAB PO SCH (09:51)
[2021-07-25] MEDS ORDERED: ACETAMINOPHEN 500 MG TAB ONE (12:27)
[2021-07-26] MEDS: IBUPROFEN 800 MG TAB PO SCH ×2 (02:22→02:24)
--- NOTE | 2021-07-26 08:42 | Discharge Summary ---
Providers - Providers Date of Admission: 07/24/21 10:57 Date of discharge: 07/26/21 Attending physician: SARA BABCOCK Primary care physician: SARA BABCOCK Hospitalization Reason for admission: active labor Delivery: Episiotomy: none Laceration: none Other procedures: none complications: other (Pre eclampsia, post mag infusion) Discharge diagnosis: IUP at term delivered baby: female Pertinent studies: Pt denies DILLARD, blurred vision, spots before her eyes, chest pain, upper abdominal pain, and shortness of breath. We discussed should any of these symptoms occur after discharge, she will need to call the cotton bag sewer provider immediately and to the ER for evaluation. Pt has pre eclampsia after delivery and received a course of magnesium. We discussed how to take a blood pressure at home. She understands that she will come back to the office in 1 week to check her blood pressure. Blood pressure ranges for the last six hours have been 101-130's/40-60's. Hospital course: S: Pt doing well. Ambulating, voiding, and passing flatus okay. O: VSS. Fundus firm, minimal bleeding noted. H/H 9.3/30.1, asymptomatic anemia of delivery. A: 30 y.o. s/p , pre eclampsia , s/p magnesium infusion. P: Discharge home with instructions. Pt to schedule blood pressure check in the office in 1 week. Condition at discharge: Good Disposition: 01 HOME / SELF CARE / HOMELESS Plan - Discharge Medications Prescriptions: Docusate Sodium [Colace] 100 mg PO BID PRN #60 capsule PRN Reason: Constipation Ferrous Sulfate [Feosol 325 MG tab] 325 mg PO QDAY #30 tablet - Provider Discharge Summary Activity: routine, no sex for 6 weeks, no heavy lifting 4 weeks, no strenuous exercise Diet: routine Instructions: routine Additional instructions: [] Smoking cessation referral if applicable(refer to patient education folder for contact #) [] Refer to [facility] Booklet Call your doctor immediately for: * Fever > 100.5 * Heavy vaginal bleeding ( >1 pad per hour) * Severe persistent headache * Shortness of breath * Reddened, hot, painful area to leg or breast * * Congratulations on your baby girl. Thank you for allowing us to take care of you. Please make your blood pressure check appointment in the office in 1 week. Should you have any questions or concerns after discharge, please do not hesitate to call us at [phone]. Taking your blood pressure at home Please take your blood pressure at least once daily Taking your blood pressure with a wrist monitor: 1. Put the blood pressure cuff on your wrist. Make sure it is not on the bone of your wrist. 2. Sit with your legs uncrossed and feet flat on the ground. 3. Wait 5-10 minutes before taking your blood pressure. 4. If you wrist monitor requires you to put your arm across your chest: After 5-10 minutes, put your arm across your chest like you are about to say the pledge of matheus. Taking your blood pressure with a cuff monitor: 1. Put the blood pressure cuff on your arm. 2. Sit with your legs uncrossed and feet flat on the ground. Make sure your arm is relaxed on a table or your kitchen table and bent at a 90 degree angle. 3. After 5-10 minutes push the button to take your blood pressure. While you are at home, if you experience a headache, blurred vision, spots bef ore your eyes, chest pain, shortness of breath, and pain in your upper belly, and/or your blood pressure is 160/100 or greater please call the on-call provider immediately. - Follow up plan Follow up: SARA BABCOCK MD [Primary Care Provider] - 7 Days Forms: [facility] Discharge Summary
[2021-07-26] MEDS: DOCUSATE SODIUM 100 MG CAP PO SCH (10:09)
[2021-07-26] MEDS: PRENATAL VIT27-FE FUMARATE-FOLIC ACID VIT TAB PO SCH (10:09)
[2021-07-26 15:28] VITALS: BP 121/58
== END 2021-07-26 18:21 | disposition home or self-care (01) | DRG 774 ==
LOC: TRG 07:59 → LD 07:59 → TRG 10:57 → LD 10:57 → OB 07-25 13:21
PROVIDERS: ADMIT Obstetrics & Gynecology; ATTEND Obstetrics & Gynecology
PROC: 10E0XZZ Delivery of Products of Conception, External Approach (ICD-10-PCS; principal; 2021-07-24)
PROC: 3E0R3BZ Introduction of Anesthetic Agent into Spinal Canal, Percutaneous Approach (ICD-10-PCS; 2021-07-24)
PROC: 00HU33Z Insertion of Infusion Device into Spinal Canal, Percutaneous Approach (ICD-10-PCS; 2021-07-24)
PROC: 3E0234Z Introduction of Serum, Toxoid and Vaccine into Muscle, Percutaneous Approach (ICD-10-PCS; 2021-07-25)
DX: O36.5930 Maternal care for other known or suspected poor fetal growth, third trimester, not applicable or unspecified (principal); O14.95 Unspecified pre-eclampsia, complicating the puerperium; O34.33 Maternal care for cervical incompetence, third trimester; Z20.822 Contact with and (suspected) exposure to COVID-19; O99.62 Diseases of the digestive system complicating childbirth; O99.214 Obesity complicating childbirth; O71.82 Other specified trauma to perineum and vulva; O99.824 Streptococcus B carrier state complicating childbirth; O69.81X0 Labor and delivery complicated by cord around neck, without compression, not applicable or unspecified; Z3A.37 37 weeks gestation of pregnancy; Z37.0 Single live birth; K21.9 Gastro-esophageal reflux disease without esophagitis; Z23 Encounter for immunization; O99.344 Other mental disorders complicating childbirth; F32.A Depression, unspecified
CPT/HCPCS: 36415; 59025; 81001; 82565; 83615; 83735; 84112; 84450; 84460; 84550; 85014; 85018; 85027; 86592; 86850; 86900; 86901; 93005; 96360; 96361; G0378; J3475; U0003